=== PATIENT | female | born 1950 | race Caucasian/White ===

== ENCOUNTER 2019-05-19 16:13 | Inpatient (IN) | payer OTHER ==
[~2019-05-19] VITALS: Ht 165.1 cm; Wt 112.0 kg
--- NOTE | ~2019-05-19 | OP ---
[address] [address] OPERATIVE REPORT Name: BRITTANY CHUNG Room: [address] IN M.R.#: [id number] Admission: 05/19/19 Attend Phys: Tayo Jackson Discharge: Date of : 46 Report #: [id number] THIS REPORT FOR: //name// CC: [facility] Ayon DATE OF SERVICE: 05/21/2019 PREOPERATIVE DIAGNOSIS: Bilateral renal calculi. POSTOPERATIVE DIAGNOSIS: Bilateral renal calculi. PROCEDURE PERFORMED: Cystoscopy, bilateral retrograde pyelogram, bilateral ureteral stent placement. SURGEON: Sushma Aiken MD COMPLICATIONS: None. ANESTHETIC: General. BLOOD LOSS: None. SPECIMENS: None. DRAINS: Include bilateral 6 x 28 cm double J ureteral stents. INDICATIONS: This is a 69-year-old female who presented with flank pain. She was in atrial fibrillation and required cardiac catheterization and cardiac clearance preoperatively. She has large bilateral renal calculi and is having pain from especially the stone on the right side ball valving in the renal pelvis. Therefore, following informed consent, then with cardiac clearance, she was brought to the operating room to undergo cystoscopy with bilateral ureteral stent placement. The patient and her spouse understand the procedure, risks, potential complications including but not limited to bleeding, infection, injury to the urinary tract or adjacent structures and subsequent need for stone management electively. There was also a question of UTI and therefore this was done more urgently after cardiac clearance. DESCRIPTION OF PROCEDURE: Following informed consent, the patient was taken to the operating room and placed under general anesthesia, was prepped and draped in sterile fashion in dorsal lithotomy position. Cystoscopy was carried out. There were no bladder lesions noted. The right ureteral orifice was cannulated using a Pollack catheter. Retrograde pyelogram was performed, which revealed a [facility] [address] [place] [address] OPERATIVE REPORT Name: BRITTANY CHUNG Room: [address]#: [id number] Admission: 05/19/19 Attend Phys: Tayo Jackson Discharge: Date of : 46 Report #: [id number] large filling defect in the renal pelvis. A sensor guidewire was advanced beyond the stone and into the renal pelvis and then a 6 x 28 cm stent was placed with a coil in the renal pelvis and a coil in the bladder. Identical procedure was performed on the left side, was likewise revealed a filling defect and a 6 x 28 stent was placed on that side as well. After confirming appropriate positioning by fluoroscopy, the bladder was drained. The patient was given a Uro-Jet per urethra. B and O suppository, Toradol injection returned to recovery room in satisfactory condition. The patient will need to follow up in 7-10 days and schedule elective bilateral ureteroscopy. By: [id number] dalila Mark
[2019-05-19 16:23] VITALS: BP 131/72
[2019-05-19] MEDS ORDERED: ZYRTEC10 M2 PO (16:27)
[2019-05-19] MEDS ORDERED: AZELASTINE137 MCG/0. INH (16:27)
[2019-05-19] MEDS ORDERED: CARVEDILOL12.5 MG PO (16:27)
[2019-05-19] MEDS ORDERED: COZAAR 25 MG TA25 M2 PO (16:30)
[2019-05-19] MEDS ORDERED: HYDROCODON-ACE1 EA12 PO (16:30)
[2019-05-19] MEDS ORDERED: XARELTO20 MG PO (16:31)
[2019-05-19] MEDS ORDERED: SPIRONOLACTONE25 M1 PO (16:31)
[2019-05-19 17:03] LABS: ABSOLUTE BASOPHILS 0.1 thou/uL (0.0-0.2); ABSOLUTE EOSINOPHILS 0.1 thou/uL (0.0-0.7); ABSOLUTE MONOCYTES 0.5 thou/uL (0.0-1.2); ABSOLUTE NEUTROPHILS 3.6 thou/uL (1.6-8.1); BASOPHILS 0.9 %; EOSINOPHILS 1.8 %; HEMATOCRIT 43.3 % (37.0-47.0); HEMOGLOBIN 14.5 gm/dL (12.0-15.0); LYMPHOCYTES 31.4 %; MCH 29.9 pg (26.0-34.0); MCHC 33.6 g/dL (28.0-37.0); MONOCYTES 8.5 %; MPV 9.4 fl. (7.2-11.1); NUCLEATED RBCS 0 /100WBC; PLATELET COUNT* 229 thou/uL (150-400); POLYS 57.4 %; RBC 4.86 mil/uL (4.20-5.00); RDW-CV 15.1 % (10.5-14.5); WBC 6.3 thou/uL (4.0-11.0)
[2019-05-19 17:13] LABS: APTT 35.2 Seconds (25.0-31.3); INR 1.3
[2019-05-19 17:14] LABS: CALCIUM 9.2 mg/dL (8.5-10.1); CREATININE 0.9 mg/dL (0.6-1.3); POTASSIUM 4.5 mmol/L (3.5-5.1)
[2019-05-19 17:27] LABS: ALBUMIN 3.8 g/dL (3.4-5.0); CK-MB MASS 0.8 ng/mL (<0.5-3.6); MAGNESIUM 1.9 mg/dL (1.8-2.4); TOTAL BILIRUBIN 0.5 mg/dL (<0.1-1.0)
[2019-05-19 17:40] LABS: URINE BILIRUBIN NEGATIVE (Negative); URINE BLOOD 3+ (Negative); URINE CLARITY CLOUDY; URINE COLOR BROWN; URINE GLUCOSE-RANDOM NEGATIVE (Negative); URINE KETONES TRACE (Negative); URINE LEUKOCYTES-REFLEX TRACE (Negative); URINE NITRITE-REFLEX POSITIVE (Negative); URINE PROTEIN 3+ (Negative); URINE SPECIFIC GRAVITY 1.025 (1.005-1.030); URINE UROBILINOGEN 0.2 E.U./dl (0.2-1.0)
[2019-05-19 17:42] LABS: SQUAMOUS 4-10 Moderate /LPF (0-3); URINE RBC >20 Many /HPF (0-2)
[2019-05-19 17:43] LABS: BACTERIA-REFLEX 1-9 Few /HPF (None Seen); CASTS None Seen /LPF (None Seen)
[2019-05-19 17:44] LABS: URINE WBC-REFLEX 0-5 Rare /HPF (0-5)
[2019-05-19 17:46] LABS: CRYSTALS None Seen /LPF (None Seen); MUCUS 0-3 Light strn/LPF (None Seen); YEAST-REFLEX Present (None Seen)
[2019-05-19 19:42] VITALS: BP 106/65
[2019-05-19 20:00] VITALS: BP 146/81
[2019-05-20] VITALS (7 sets, daily range): BP systolic 101–130; BP diastolic 47–89
[2019-05-20 04:53] LABS: POTASSIUM 4.3 mmol/L (3.5-5.1)
[2019-05-20 11:21] LABS: CHOLESTEROL 171 mg/dL (<200); HDL CHOLESTEROL 52 mg/dL (>40); LDL CHOLESTEROL 102 mg/dL (<100); SERUM ASSESSMENT Clear; TC:HDL 3.3 Ratio (Not establshd); TRIGLYCERIDE 86 mg/dL (<150); VLDL 17 mg/dL (<40)
--- NOTE | 2019-05-20 12:58 | EKG ---
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: [facility] : 1950 Requested By: Laron Dawn Order Number: [id number] MD: Antony Varela Measurements Intervals [place] Rate: 128 P: [place]: QRS: -21 QRSD: 160 T: 86 QT: 366 QTc: 534 Interpretive Statements Atrial fibrillation Left bundle branch block No previous ECG available for comparison Electronically Signed On 05-20-2019 12:58:16 BOTTLE LINE WORKER by Antony Varela [email or web address] <ELECTRONICALLY SIGNED> By: Antony Varela MD, [facility] 05/20/19 1258 1630 29 Antony Varela MD, FACC /EPI
--- NOTE | 2019-05-20 13:45 | CON ---
[address] [address] CONSULTATION Name: BRITTANY CHUNG Room: [address] IN .R.#: [id number] Admission: 05/19/19 Attend Phys: Tayo Jackson Discharge: Date of : 46 Report #: [id number] THIS REPORT FOR: //name// CC: AZ[facility] physician/PCP ERICKSON TRUJILLO DO Alvina Ayon DATE OF SERVICE: 05/19/2019 INDICATION: Heart failure and atrial fibrillation. HISTORY OF PRESENT ILLNESS: The patient is a pleasant 69-year-old white female who was recently diagnosed with cardiomyopathy with an ejection fraction of 25%. She was also noted to have atrial fibrillation with poorly controlled ventricular response rate. Despite medical management on an outpatient basis, she has continued to have progressive dyspnea and shortness of breath. She denies alena chest pain. Her atrial fibrillation rate appears to continue to be poorly controlled. Presently, she has class 3 heart failure symptoms. She has a history of ureteral stenosis and recent urinary tract infection with continued rust colored urine. She is anticoagulated with Xarelto and having no overt bleeding. CURRENT MEDICATIONS: Astelin nasal spray 2 sprays daily, carvedilol 3.125 mg b.i.d., Zyrtec 10 mg daily, Voltaren gel as directed, Vicoprofen 7.5/200 mg one tablet q. 8 hours p.r.n., Cozaar 25 mg daily, Xarelto 20 mg daily, and Aldactone 25 mg daily. ALLERGIES: None documented. PAST MEDICAL HISTORY: 1. Nephrolithiasis. 2. Osteoarthritis. 3. Hyperlipidemia. 4. Atrial fibrillation, persistent. 5. Newly-diagnosed cardiomyopathy. PAST SURGICAL HISTORY: 1. Bladder suspension. 2. . 3. Hysterectomy. 4. Tonsillectomy. 5. [place] [address] CONSULTATION Name: BRITTANY CHUNG Room: [address]#: [id number] Admission: 05/19/19 Attend Phys: Tayo Jackson Discharge: Date of : 46 Report #: [id number] FAMILY HISTORY: The patient's father had heart disease. SOCIAL HISTORY: The patient is a lifelong nonsmoker. She drinks alcohol rarely. REVIEW OF SYSTEMS: Positive for dyspnea on exertion, palpitations, shortness of breath, arthritis, and lightheadedness. Otherwise, 14-point review of systems was unremarkable. PHYSICAL EXAMINATION: VITAL SIGNS: Blood pressure is 160/88. Pulse is in the 130s and irregular. GENERAL: This is a pleasant female in no overt distress. HEENT: Head is normocephalic and atraumatic. Extraocular muscles intact. Mucous membranes are moist. NECK: No obvious jugular venous distention. I do not appreciate carotid bruit. CHEST: Reveals diminished breath sounds without wheezes or rales. CARDIOVASCULAR: Reveals an irregularly irregular rhythm that is tachycardic without obvious gallop. ABDOMEN: Reveals normal bowel sounds. The abdomen is soft and nontender. EXTREMITIES: Trace ankle edema bilaterally. SKIN: Dry. Echocardiogram on 05/06/2019 showed an EF of 20-25% with global hypokinesis. Left atrium was mildly dilated. There was mild mitral and mild tricuspid insufficiency. LABORATORY DATA: Labs are pending. IMPRESSION AND RECOMMENDATIONS: 1. Edvbi-cu-nzylqcw heart failure. We will give bolus IV Lasix and adjust heart failure medications as tolerated. My first adjustment would be to increase carvedilol. 2. Atrial fibrillation, persistent with poorly controlled rate. At this time, I would be in favor of amiodarone bolus and drip for improved rate control and possible conversion. She has been anticoagulated with Xarelto. I will continue this. 3. Hypercoagulable state due to atrial fibrillation. Continue Xarelto 20 mg daily. 4. Chronic anticoagulation. The patient appears to be tolerating this fairly well. She is having some dark urine which may be related to recent urinary tract infection[place] [address] CONSULTATION Name: BRITTANY CHUNG Room: [address] IN ..#: [id number] Admission: 05/19/19 Attend Phys: Tayo Jackson Discharge: Date of : 46 Report #: [id number] 5. Hypertension. The patient's blood pressure is moderately elevated. We will make adjustments to antihypertensive regimen as indicated. <ELECTRONICALLY SIGNED> By: Ozzie Cummings MD, FACC 05/20/19 1345 1717 [id number] mountain regional medical centerfabio Cummings MD, FACC /nt
[2019-05-21] VITALS (7 sets, daily range): BP systolic 83–161; BP diastolic 46–98
[2019-05-21 05:40] LABS: CALCIUM 8.6 mg/dL (8.5-10.1); CREATININE 1.1 mg/dL (0.6-1.3); POTASSIUM 4.1 mmol/L (3.5-5.1)
--- NOTE | 2019-05-21 11:43 | CARD ---
[address] [address] CARDIAC CATH REPORT Name: BRITTANY CHUNG Room: [address] IN ..#: [id number] Admission: 05/19/19 Attend Phys: Tayo Jackson Discharge: Date of : 46 Report #: [id number] THIS REPORT FOR: //name// APPROVED REPORT Study performed: 05/20/2019 16:14:04 Patient Details Patient Status: In-Patient Room #: The patient is a 69 year-old female Event Personnel Ozzie Cummings Delivery Of Shopping News, Jesica Mccarthy Reeves, Adam RTR Scrub, Akanksha Santa RN Department Head [employer] Procedures Performed Art Access - R radial artery Left Heart Cath w/LT [facility] [id number] LHCLV , PTCA with Stenting Procedure Narrative The patient was brought urgently to the Cardiac Catheterization Laboratory and was prepped and draped in a sterile manner. The right wrist was infiltrated with 2% Lidocaine subcutaneous anesthesia. A Slender Glidesheath sheath was inserted into the right radial artery. Coronary angiography was performed using coronary diagnostic catheters. The right coronary system was accessed and visualized with a Diagnostic catheter. The left coronary system was accessed and visualized with a Diagnostic catheter. The left ventricle was accessed and visualized with a Diagnostic catheter. The patient tolerated the procedure well and there were no complications associated with the procedure. There was no hematoma. Intraoperative Conscious Sedation Sedation start time: 1728 Case end Time: 1742 Fentanyl 50 mcg Versed 2 mg Contrast Type and Amount: Visipaque 50 ml Diagnostic Cath Left Main Short and normal. The left vein bifurcates into an LAD and circumflex. LAD the left anterior descending coronary artery has minimal less than 10% plaquing proximally. The vessel appears normal. Diagonal 1 A moderate sized branched first [place] [address] CARDIAC CATH REPORT Name: BRITTANY CHUNG Room: [address] IN [facility]#: [id number] Admission: 05/19/19 Attend Phys: Tayo Jackson Discharge: Date of : 46 Report #: [id number] significant disease. Diagonal 2 A moderate size second diagonal is free of significant disease. Circumflex The circumflex coronary artery appears normal in its proximal mid and distal portion. OM1 A single large branched marginal is normal. Right Coronary The right coronary artery appears normal in its proximal mid and distal portion. R PDA A moderate-sized PDA is normal. RPLV A small right posterior lateral branch is normal. Left Ventriculography Left Ventriculography was not performed. Hemodynamics The aortic pressure is 115/57 mmHg with a mean of 39 mmHg. The left ventricular pressure is 103/6 mmHg with a mean of mmHg. The left ventricular end diastolic pressure is 9 mmHg. There was no gradient across the aortic valve upon pullback. Conclusion 1. Minimal coronary artery plaquing as outlined above. No hemodynamically significant stenoses noted. 2. Normal left ventricular end-diastolic pressure. Recommendations 1. Continue medical management and risk factor modification. <ELECTRONICALLY SIGNED> By: Ozzie Cummings MD, [facility] 05/21/19 1142 1142 1142Michollis Cummings MD, FACC /INF
[2019-05-22] VITALS: BP 107/58
[2019-05-22 04:00] VITALS: BP 96/53
[2019-05-22 07:00] VITALS: BP 144/66
[2019-05-22 08:44] VITALS: BP 144/66
[2019-05-22 09:38] LABS: HEMATOCRIT 39.5 % (37.0-47.0); HEMOGLOBIN 13.3 gm/dL (12.0-15.0); MCH 30.3 pg (26.0-34.0); MCHC 33.7 g/dL (28.0-37.0); MPV 9.8 fl. (7.2-11.1); RBC 4.39 mil/uL (4.20-5.00); RDW-CV 14.9 % (10.5-14.5); WBC 9.8 thou/uL (4.0-11.0)
[2019-05-22 09:45] LABS: CALCIUM 9.5 mg/dL (8.5-10.1); CREATININE 1.1 mg/dL (0.6-1.3); MAGNESIUM 1.8 mg/dL (1.8-2.4)
[2019-05-22] MEDS ORDERED: LEVSIN0.125 MG SUBLING (10:43)
[2019-05-22] MEDS ORDERED: PACERONE 200 M200 M1 PO (10:43)
[2019-05-22] MEDS ORDERED: KEFLEX500 M2 PO (10:43)
[2019-05-22] MEDS ORDERED: COREG6.25 MG PO (10:43)
[2019-05-22] MEDS ORDERED: LIPITOR20 MG PO (10:46)
== END 2019-05-22 12:03 | disposition home or self-care (01) | DRG 853 ==
LOC: M.ERS 16:13 → M.2W 17:19 → M.TBA-ER 17:19 → M.2W 20:14
PROVIDERS: Emergency Medicine; Internal Medicine; Internal Medicine Cardiovascular Disease; ADMIT Internal Medicine
DX: A41.9 Sepsis, unspecified organism (principal); I50.23 Acute on chronic systolic (congestive) heart failure; D68.69 Other thrombophilia; I42.9 Cardiomyopathy, unspecified; Z68.41 Body mass index [BMI] 40.0-44.9, adult; I48.19 Other persistent atrial fibrillation; N13.6 Pyonephrosis; E66.01 Morbid (severe) obesity due to excess calories; M19.90 Unspecified osteoarthritis, unspecified site; E78.5 Hyperlipidemia, unspecified; F17.210 Nicotine dependence, cigarettes, uncomplicated; I11.0 Hypertensive heart disease with heart failure; G89.29 Other chronic pain; M54.9 Dorsalgia, unspecified; I25.10 Atherosclerotic heart disease of native coronary artery without angina pectoris; R31.9 Hematuria, unspecified; Z87.442 Personal history of urinary calculi; Z90.710 Acquired absence of both cervix and uterus; Z98.891 History of uterine scar from previous surgery; Z82.49 Family history of ischemic heart disease and other diseases of the circulatory system; Z72.89 Other problems related to lifestyle; Z79.01 Long term (current) use of anticoagulants; Z79.899 Other long term (current) drug therapy

== ENCOUNTER → 2019-06-28 | Day surgery (SDC) | payer OTHER ==
[~2019-06-28] MED LIST: AZELASTINE137 MCG/0. INH; CARVEDILOL12.5 MG PO; CIPRO250 M2 PO; COREG6.25 MG PO; COZAAR 25 MG TA25 M2 PO; FLOMAX0.4 MG PO; HYDROCODON-ACE1 EA12 PO; KEFLEX500 M2 PO; LEVSIN0.125 MG SUBLING; LIPITOR20 MG PO; NORCO 5-325 TA1 EAC1 PO; OXYBUTYNIN 5 MG5 M2 PO; PACERONE 200 M200 M1 PO; PYRIDIUM200 MG PO; SPIRONOLACTONE25 M1 PO; XARELTO20 MG PO; ZYRTEC10 M2 PO
[2019-06-28 14:06] LABS: HEMATOCRIT 31.7 % (37.0-47.0); HEMOGLOBIN 10.5 gm/dL (12.0-15.0); MCH 30.4 pg (26.0-34.0); MCHC 33.2 g/dL (28.0-37.0); MCV 91.5 fL (80.0-100.0); MPV 8.5 fl. (7.2-11.1); RBC 3.46 mil/uL (4.20-5.00); RDW-CV 16.2 % (10.5-14.5); WBC 6.5 thou/uL (4.0-11.0)
[2019-06-28 14:09] LABS: CALCIUM 9.2 mg/dL (8.5-10.1); CREATININE 1.1 mg/dL (0.6-1.3); POTASSIUM 4.5 mmol/L (3.5-5.1)
--- NOTE | 2019-06-29 10:42 | EKG ---
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
--- NOTE | 2019-06-29 11:43 | OP ---
[address] [address] OPERATIVE REPORT Name: BRITTANY GUTIERREZ Room: [facility] M.R.#: [id number] Admission: 06/28/19 Attend Phys: Ernesto Cui MD Discharge: Date of : 46 Report #: [id number] THIS REPORT FOR: //name// cc: Moon French Kathleen M. DO ~ THIS REPORT FOR: //name// CC: Ernesto French DATE OF SERVICE: 06/28/2019 UROLOGY OPERATIVE NOTE PREOPERATIVE DIAGNOSIS: Bilateral nephrolithiasis. POSTOPERATIVE DIAGNOSIS: Bilateral nephrolithiasis. PROCEDURES PERFORMED: 1. Cystoscopy. 2. Bilateral retrograde pyelogram. 3. Bilateral ureteroscopy with laser lithotripsy and stone basket extraction. 4. Bilateral ureteral stent exchange. STAFF: Ernesto Cui MD COMPLICATIONS: None. DRAINS: Bilateral 6 x 26 ureteral stents. SPECIMENS: Renal stones. ESTIMATED BLOOD LOSS: 0 mL. INDICATIONS FOR PROCEDURE: The patient is a 69-year-old female who originally presented with right-sided flank pain. A CT demonstrated bilateral hydronephrosis due to ureteral stones. She subsequently underwent a cystoscopy, bilateral ureteral stent placement with Dr. Aiken. Her infection was then treated and she presents today for definitive stone management. DESCRIPTION OF PROCEDURE: On 06/28/2019, after consent was obtained, the patient was taken to the operating room and placed in supine position. She was then placed under general anesthesia. She received preoperative IV Cipro for antibiotic coverage. She was then placed in dorsal lithotomy and her genitals were prepped and draped [place] [address] OPERATIVE REPORT Name: BRITTANY GUTIERREZ Room: [facility] Tayo.Kristopher.#: [id number] Admission: 06/28/19 Attend Phys: Ernesto Cui MD Discharge: Date of : 46 Report #: [id number] We began the procedure by inserting a 22.5-Bermudian rigid cystoscope transurethrally without any difficulty. Once into the bladder, identified the left ureteral stent. Using alligator forceps, we grasped this and pulled this out to the urethral meatus without difficulty. This was then cannulated with a Sensor wire, which was passed up the renal pelvis under fluoroscopic guidance. I followed over top of the Sensor wire with a 5-Bermudian open-ended stent. A retrograde pyelogram demonstrated normal-caliber collecting system with a large filling defect consistent with a stone in the renal pelvis. At this point, the Sensor wire was then replaced. I selected a 12-14-35 cm access sheath and passed up to the level of the UPJ without resistance. Then, utilized the flexible ureteroscope. There was a large stone free floating in the renal pelvis. I used a 272 micron laser fiber to break this up into multiple smaller fragments. I used the dusting setting as the stone was very soft. I then used a 1.9 nitinol basket to grasp all measurable stone burden. I then continued dusting the remaining stone fragments until they were less than 1 mm. Following this, I placed the Sensor wire through the ureteroscope and through the access sheath and the ureteroscope visualizing the entire ureter. The ureter was free of any stone burden and/or injury. I then selected a 6 x 26 stent, which was passed up the upper pole under fluoroscopic guidance, had a good coil in the urinary bladder under direct visual guidance. I then turned my attention to the right ureteral stent and used an alligator forceps to grasp this and pull this out to the urethral meatus without difficulty. Once again, this was cannulated with a Sensor wire, which was passed up the renal pelvis under fluoroscopic guidance. I then selected the 5-Bermudian open-ended stent and passed this up over the Sensor wire into the renal pelvis. A retrograde pyelogram demonstrated large filling defect right at the UPJ, but no other extravasation or abnormalities. Sensor wire was then replaced. Again, selected the access sheath and passed this up over the Sensor wire under fluoroscopic guidance at the level of the UPJ without resistance. Flexible ureteroscope was then again utilized, identified the stone and continued in a similar fashion using the laser fiber to break this into multiple smaller fragments using a "dusting" setting. I could see this all stone burden was less than 1 mm. I placed the Sensor wire into the upper pole. I withdrew the access sheath and ureteroscope visualizing the entire ureter, which was free of any injury and/or stone burden. I then selected a 6 x 26 stent, which was passed up into the renal pelvis under fluoroscopic guidance, had a good coil in the urinary bladder under direct visual guidance. The patient's bladder was emptied. She was awakened from anesthesia. DISPOSITION: The patient will be discharged home after recovery in the PACU. Follow up in 2 weeks with a KUB. <ELECTRONICALLY SIGNED> By: Ernesto Cui MD 06/29/19 1143 1555 1829Ernesto Cui MD /nt
== END | disposition home or self-care (01) ==
LOC: M.SUR 07:55
PROVIDERS: Urology
DX: N20.0 Calculus of kidney (principal); I48.91 Unspecified atrial fibrillation; I50.22 Chronic systolic (congestive) heart failure; Z98.890 Other specified postprocedural states; Z79.899 Other long term (current) drug therapy; Z79.01 Long term (current) use of anticoagulants